=== PATIENT | female | born 1975 | race Two or more races ===

== ENCOUNTER → 2017-07-18 | Outpatient (CLI) | payer OTHER | LOC: CIMAGING 15:05 | PROVIDERS: ATTEND Physician Assistant | DX: Z12.31 Encounter for screening mammogram for malignant neoplasm of breast (principal) | CPT/HCPCS: G0202 ==

== ENCOUNTER → 2017-08-15 | Outpatient (CLI) | payer OTHER | LOC: CIMAGING 13:19 | PROVIDERS: ATTEND Physician Assistant | DX: R92.8 Other abnormal and inconclusive findings on diagnostic imaging of breast (principal) | CPT/HCPCS: 76641-PO ==

== ENCOUNTER → 2018-01-26 | Outpatient (CLI) | payer OTHER | LOC: CIMAGING 12:59 | PROVIDERS: ATTEND Physician Assistant | DX: Z09 Encounter for follow-up examination after completed treatment for conditions other than malignant neoplasm (principal); R92.8 Other abnormal and inconclusive findings on diagnostic imaging of breast ==

== ENCOUNTER → 2018-07-19 | Outpatient (CLI) | payer OTHER | LOC: CIMAGING 07:21 | PROVIDERS: ATTEND Physician Assistant | DX: Z12.31 Encounter for screening mammogram for malignant neoplasm of breast (principal); Z98.890 Other specified postprocedural states ==